=== PATIENT | female | born 1995 | race Caucasian/White ===

== ENCOUNTER 2017-01-08 13:48 | Emergency (ER) | payer BC, OTHER ==
[2017-01-08 13:57] VITALS: O2SAT 98
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
[2017-01-08 14:24] VITALS: BP 132/84; PULSE 86
== END 2017-01-08 14:23 | disposition home or self-care (01) ==
LOC: ED 13:48
DX: T23.109A Burn of first degree of unspecified hand, unspecified site, initial encounter (principal); T22.111A Burn of first degree of right forearm, initial encounter; X10.2XXA Contact with fats and cooking oils, initial encounter; Y93.G3 Activity, cooking and baking; Y92.511 Restaurant or cafe as the place of occurrence of the external cause; Y99.0 Civilian activity done for income or pay
CPT/HCPCS: 99281; 99283

== ENCOUNTER 2017-01-14 15:16 | Emergency (ER) | payer MEDICAID, OTHER ==
[2017-01-14] MEDS ORDERED: Sodium Chloride 0.9% 1000 ML 1,000 ML IV STA (15:59)
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
[2017-01-14] MEDS ORDERED: Sodium Chloride 0.9% 1000 ML 1,000 ML ONE (16:08)
[2017-01-14 16:34] LABS: BASOPHIL % 0.2 % (0.0-0.4); Granulocytes % 67.7 % (36.0-66.0); Lymphocytes % 23.9 % (24.0-44.0); Mean Cell Volume 85.7 fl (78-100); Mean Corpuscular Hemoglobin 28.7 pg (26-32); Monocytes % 7.2 % (0.0-12.0); Platelet Count 344 K/mm3 (150-450); Red Blood Count 4.49 M/mm3 (4.1-5.4); Red Cell Distribution Width 13.8 % (11.5-14.0); White Blood Count 11.7 K/mm3 (4.0-10.5)
[2017-01-14 16:37] LABS: COMPLETE URINE MICROSCOPIC? YES; Collection Type VOID; Ph 5.5 (5-6)
[2017-01-14 16:43] LABS: ADD URINE CULTURE? YES (NO); Bacteria MANY /HPF (NEGATIVE); Epithelial Cells PACKED /HPF (FEW); Mucus SLIGHT /HPF (NEGATIVE)
[2017-01-14 17:15] LABS: ALBUMIN 3.2 g/dL (3.4-5.0); ALKALINE PHOSPHATASE 104 U/L (46-116); ANION GAP 15.6 MEQ/L (5-15); BLOOD UREA NITROGEN 9 mg/dL (9-20); CHLORIDE 104 mEq/L (98-107); Carbon Dioxide 20.2 mEq/L (21-32); Glucose 85 MG/DL (70-110); HCG, Quantitative (Inhouse) 175952 IU/L (0-6); Potassium 3.8 mEq/L (3.5-5.1); SGOT/AST 16 U/L (15-37); SGPT/ALT 19 U/L (12-78); SODIUM 136 mEq/L (136-145); Total Protein 7.1 gm/dL (6.4-8.2)
[2017-01-14 18:08] VITALS: BP 119/66; PULSE 68
[2017-01-14 18:36] VITALS: O2SAT 98
--- NOTE | 2017-01-14 21:55 | XRAY ---
Indication: Pain. Two-dimensional transvaginal early OB ultrasound was performed. Comparison: None for this . There is a single intrauterine gestational sac with presence of a single pole. The mean crown-rump length measures 3.16 cm corresponding to 10 weeks 0 days. heart rate 171 bpm. No abnormal subchorionic fluid collection. Left and right ovaries sonographically unremarkable. No suspicious adnexal mass or free fluid. Impression: Single viable intrauterine measuring 10 weeks 0 days. Expected date of confinement is August 12, 2017. Nothing acute. Comment: Preliminary report was given.
== END 2017-01-14 18:41 | disposition home or self-care (01) ==
LOC: ED 15:16
DX: O26.891 Other specified pregnancy related conditions, first trimester (principal); R10.32 Left lower quadrant pain; R10.31 Right lower quadrant pain
CPT/HCPCS: 36000; 36415; 76801; 80053; 81000; 84702; 85025; 87086; 96360; 99284

== ENCOUNTER 2017-02-12 01:26 | Emergency (ER) | payer BC, MEDICAID ==
[2017-02-12 03:44] VITALS: O2SAT 97
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
[2017-02-12 04:17] VITALS: BP 124/78; PULSE 72
== END 2017-02-12 04:15 | disposition home or self-care (01) ==
LOC: ED 01:26
DX: O26.891 Other specified pregnancy related conditions, first trimester (principal); Z3A.14 14 weeks gestation of pregnancy; R10.10 Upper abdominal pain, unspecified; Y04.0XXA Assault by unarmed brawl or fight, initial encounter; R11.10 Vomiting, unspecified
CPT/HCPCS: 99282; 99283

== ENCOUNTER 2017-08-17 16:27 | Inpatient (IN) | payer BC, MEDICAID ==
[2017-08-17] MEDS ORDERED: Cervidil 10 MG VAG SCH (22:00)
[2017-08-17] MEDS ORDERED: BRETHINE 1 MG/ML SQ PRN (22:00)
[2017-08-17 22:54] LABS: Amphetamine,Urine NEG. (NEGATIVE); Barbiturate,Urine NEG. (NEGATIVE); Benzodiazepine,Urine NEG. (NEGATIVE); Cocaine,Urine NEG. (NEGATIVE); Methadone,Urine NEG. (NEGATIVE); Opiate,Urine NEG. (NEGATIVE); PCP,Urine NEG. (NEGATIVE); THC,Urine NEG. (NEGATIVE)
[2017-08-17 22:55] LABS: BASOPHIL % 0.2 % (0.0-0.4); Basophil (Absolute #) 0.02 (0-0.4); Eosinophil (Absolute #) 0.13 (0-0.5); Granulocyte Absolute (ANC) 8.45 (1.4-6.9); Granulocytes % 63.3 % (36.0-66.0); Hemoglobin 11.6 gm/dl (12.0-16.0); Lymphocyte (Absolute #) 3.59 (1.0-4.6); Lymphocytes % 26.9 % (24.0-44.0); Mean Cell Volume 86.1 fl (78-100); Mean Corpuscular Hgb Concent. 32.2 g/dl (32-36); Mean Platelet Volume 10.7 fl (6-9.5); Monocyte (Absolute #) 1.14 (0.0-1.3); Monocytes % 8.6 % (0.0-12.0); Platelet Count 361 K/mm3 (150-450); Red Blood Count 4.18 M/mm3 (4.1-5.4); Red Cell Distribution Width 13.9 % (11.5-14.0); White Blood Count 13.3 K/mm3 (4.0-10.5)
[2017-08-17 23:04] LABS: Mean Corpuscular Hemoglobin 27.7 pg (26-32)
[2017-08-18] MEDS ORDERED: PITOCIN 30 UNITS/ LR 500 ML 500 ML IV SCH ×2 (06:00)
[2017-08-18] MEDS ORDERED: TYLENOL EXTRA STRENGTH 500 MG PO PRN ×2 (06:00→18:37)
[2017-08-18] MEDS ORDERED: XYLOCAINE 1% HCL 20 ML MDV IJ PRN (06:00)
[2017-08-18] MEDS: Lactated Ringers 1,000 ML IV SCH ×2 (06:01→10:34)
[2017-08-18] MEDS ORDERED: Ephedrine Sulfate 50 MG/ML IV PRN (11:55)
[2017-08-18] MEDS ORDERED: Lactated Ringers 1,000 ML IV ONE (11:55)
[2017-08-18] MEDS ORDERED: OB EPIDURAL NAROPIN/SUFENTANIL IN NACL EPIDURAL PRN (11:55)
[2017-08-18 12:06] VITALS: O2SAT 98
[2017-08-18] MEDS ORDERED: Restoril 15 MG PO PRN (18:37)
[2017-08-18] MEDS ORDERED: TUCKS TP PRN (18:37)
[2017-08-18] MEDS ORDERED: Dermoplast Spray TP PRN (18:37)
[2017-08-18] MEDS ORDERED: Anucort-HC SUPPOSITORY PR PRN (18:37)
[2017-08-18] MEDS ORDERED: LANSINOH 40 GM TOP PRN (18:37)
[2017-08-18] MEDS ORDERED: CORTISONE 1% CREAM TP PRN (18:37)
[2017-08-18] MEDS ORDERED: Mylicon 80MG PO PRN (18:37)
[2017-08-18] MEDS ORDERED: Dulcolax 10 MG SUPP PR PRN (18:37)
[2017-08-18] MEDS ORDERED: Adacel Vial IM ONE (18:37)
[2017-08-18] MEDS ORDERED: Ambien 10 MG PO PRN (18:37)
[2017-08-18] MEDS: Colace 100 MG PO SCH (22:03)
[2017-08-19] MEDS: NORCO 5/325 MG PO PRN ×2 (06:09→22:44)
[2017-08-19] MEDS: MOTRIN 400 MG PO PRN ×2 (06:09→17:23)
[2017-08-19 09:28] LABS: BASOPHIL % 0.1 % (0.0-0.4); Basophil (Absolute #) 0.02 (0-0.4); Eosinophil % 0.4 % (0.00-5.0); Eosinophil (Absolute #) 0.06 (0-0.5); Granulocyte Absolute (ANC) 11.51 (1.4-6.9); Granulocytes % 75.7 % (36.0-66.0); Hematocrit 34.1 % (35-47); Hemoglobin 10.7 gm/dl (12.0-16.0); Lymphocyte (Absolute #) 2.29 (1.0-4.6); Lymphocytes % 15.1 % (24.0-44.0); Mean Cell Volume 88.1 fl (78-100); Mean Corpuscular Hemoglobin 27.6 pg (26-32); Mean Corpuscular Hgb Concent. 31.4 g/dl (32-36); Mean Platelet Volume 11.1 fl (6-9.5); Monocyte (Absolute #) 1.33 (0.0-1.3); Monocytes % 8.7 % (0.0-12.0); Platelet Count 315 K/mm3 (150-450); Red Blood Count 3.87 M/mm3 (4.1-5.4); Red Cell Distribution Width 13.9 % (11.5-14.0); White Blood Count 15.2 K/mm3 (4.0-10.5)
[2017-08-19] MEDS: Colace 100 MG PO SCH ×2 (10:04→22:40)
[2017-08-19] MEDS: FERREX 150 PO SCH (10:04)
[2017-08-20] MEDS: Colace 100 MG PO SCH (10:05)
[2017-08-20] MEDS: FERREX 150 PO SCH (10:05)
[2017-08-20 15:48] VITALS: BP 143/66; PULSE 103
[2017-08-20] MEDS ORDERED: Sensorcaine 0.25% 10 ML IJ ONE (18:59)
== END 2017-08-20 19:00 | disposition home or self-care (01) | DRG 775 ==
LOC: OB 21:03 → EEVIPCON 21:03 → OBSVTOIN 08-18 07:50
PROVIDERS: ADMIT Family Medicine; ATTEND Family Medicine
PROC: 10E0XZZ Delivery of Products of Conception, External Approach (ICD-10-PCS; principal; 2017-08-18)
DX: O70.1 Second degree perineal laceration during delivery (principal); Z3A.40 40 weeks gestation of pregnancy; Z37.0 Single live birth
CPT/HCPCS: 01967; 36415; 80307; 85025; 87086; 90471; 90715; G0378; J2590; A9270-GY

== ENCOUNTER 2020-12-14 09:42 | Emergency (ER) | payer BC, MEDICAID ==
--- NOTE | 2020-12-14 10:08 | ERPHSYRPT ---
- History of Present Illness Time Seen by Provider: 12/14/20 10:03 Source: patient Exam Limitations: no limitations Patient Subjective Stated Complaint: abd pain and cramping x 1 week Triage Nursing Assessment: pt to ED c/o lower abd pain and cramping x 1 week. rates 4/10 pain, intermittently sharp at times. pt is 15 weeks 2 days . denies vaginal bleeding at this time. FHT assessed on arrival, 159 BPM and regular in sound. Physician History: Patient is a 25-year-old at 15 weeks gestation with an EDC of 06/06/2021 who presents with 1 week history of lower abdominal crampy pain some nausea and vomiting which seems to resolve after the morning. She sees her physician tomorrow she has had no fever chills or sweats she has had no bleeding. He is a 2 para 1 Timing/Duration: week(s) (1) Activites at Onset: none Quality: cramping Onset Location: pelvic pain Pain Radiation: none Severity of Pain-Max: moderate Severity of Pain-Current: moderate Prior abdominal problems: none Sexual intercourse history: non-contributory Modifying Factors: Improves With: nothing Associated Symptoms: nausea, vomiting Allergies/Adverse Reactions: No Known Drug Allergies Allergy (Verified 08/17/17 23:15) Hx Tetanus, Diphtheria Vaccination/Date Given: Yes Hx Influenza Vaccination/Date Given: Yes Hx Pneumococcal Vaccination/Date Given: No Travel Risk - International Travel Have you traveled outside of the country in past 3 weeks: No - Coronavirus Screening Are you exhibiting any of the following symptoms?: No Close contact with a COVID-19 positive Pt in past 14-21 Days: No - Vaccine Status Have you recieved a Covid-19 vaccination: No - Review of Systems Constitutional: No Fever, No Chills Eyes: No Symptoms Ears, Nose, & Throat: No Symptoms Respiratory: No Cough, No Dyspnea Cardiac: No Chest Pain, No Edema, No Syncope Abdominal/Gastrointestinal: No Abdominal Pain, No Nausea, No Vomiting, No Diarrhea Genitourinary Symptoms: , No Dysuria Musculoskeletal: No Back Pain, No Neck Pain Skin: No Rash Neurological: No Dizziness, No Focal Weakness, No Sensory Changes Psychological: No Symptoms Endocrine: No Symptoms All Other Systems: Reviewed and Negative - Past Medical History Pertinent Past Medical History: Yes Neurological History: No Pertinent History ENT History: No Pertinent History Cardiac History: No Pertinent History Respiratory History: No Pertinent History Endocrine Medical History: No Pertinent History Musculoskeletal History: Fractures GI Medical History: No Pertinent History History: No Pertinent History Psycho-Social History: Anxiety, Attention Deficit Disorder, Depression Female Reproductive Disorders: No Pertinent History Other Medical History: ANGER ISSUES. ALCOHOL EFFECTS AT - Past Surgical History Past Surgical History: Yes Neuro Surgical History: No Pertinent History Cardiac: No Pertinent History Respiratory: No Pertinent History Gastrointestinal: No Pertinent History Genitourinary: No Pertinent History Musculoskeletal: Orthopedic Surgery Female Surgical History: No Pertinent History Other Surgical History: left leg repair - Social History Smoking Status: Current every day smoker How long have you smoked: 4 years Exposure to second hand smoke: Yes Drug Use: none Patient Lives Alone: No - Female History Hx Now: Yes Gestational Age: 15 weeks 2 - Nursing Vital Signs Nursing Vital Signs: Initial Vital Signs Temperature 97.0 F 12/14/20 09:52 Pulse Rate 91 H 12/14/20 09:52 Respiratory Rate 20 12/14/20 09:52 Blood Pressure 127/79 12/14/20 09:52 O2 Sat by Pulse Oximetry 98 12/14/20 09:52 Pain Scale Pain Intensity 4 - Physical Exam General Appearance: no apparent distress, alert Eye Exam: PERRL/EOMI, eyes nml inspection Ears, Nose, Throat Exam: normal ENT inspection, TMs normal, pharynx normal, moist mucous membranes Neck Exam: normal inspection, non-tender, supple, full range of motion Respiratory Exam: normal breath sounds, lungs clear, No respiratory distress Cardiovascular Exam: regular rate/rhythm, normal heart sounds, normal peripheral pulses Gastrointestinal/Abdomen Exam: soft, No tenderness, No mass Pelvic Exam: other (Digital exam shows the cervix to be long and closed) Back Exam: normal inspection, normal range of motion, No CVA tenderness, No vertebral tenderness Extremity Exam: normal inspection, normal range of motion, pelvis stable Neurologic Exam: alert, oriented x 3, cooperative, winder helper II-XII nml as tested, normal mood/affect, sensation nml, No motor deficits Skin Exam: normal color, warm, dry Lymphatic Exam: No adenopathy SpO2: 98 - Course Nursing assessment & vital signs reviewed: Yes Ordered Tests: Active Orders 24 hr Category Date Time Status CBC W DIFF Stat Lab 12/14/20 10:20 Completed CMP Stat Lab 12/14/20 10:20 Completed CULTURE,URINE Stat Lab 12/14/20 10:10 Received UA W/RFX UR CULTURE Stat Lab 12/14/20 10:10 Completed Lab/Rad Data: Laboratory Result Diagrams 12/14/20 10:20 12/14/20 10:20 Laboratory Results 12/14/20 12/14/20 12/14/20 Range/Units 10:20 10:20 10:10 WBC 10.8 H (4.0-10.5) K/mm3 RBC 4.24 (4.1-5.4) M/mm3 Hgb 12.6 (12.0-16.0) gm/dl Hct 37.6 (35-47) % MCV 88.7 (78-100) fl MCH 29.7 (26-32) pg MCHC 33.5 (32-36) g/dl RDW 13.7 (11.5-14.0) % Plt Count 267 (150-450) K/mm3 MPV 10.5 (7.5-11.0) fl Gran % 63.9 (36.0-66.0) % Eos # (Auto) 0.20 (0-0.5) Absolute Lymphs (auto) 3.01 (1.0-4.6) Absolute Monos (auto) 0.65 (0.0-1.3) Lymphocytes % 27.9 (24.0-44.0) % Monocytes % 6.0 (0.0-12.0) % Eosinophils % 1.9 (0.00-5.0) % Basophils % 0.3 (0.0-0.4) % Absolute Granulocytes 6.91 H (1.4-6.9) Basophils # 0.03 (0-0.4) Sodium 135 L (137-145) mmol/L Potassium 3.6 (3.5-5.1) mmol/L Chloride 108 H (98-107) mmol/L Carbon Dioxide 22 (22-30) mmol/L Anion Gap 8.7 (5-15) MEQ/L BUN 6 L (7-17) mg/dL Creatinine 0.41 L (0.52-1.04) mg/dL Estimated GFR > 60.0 ML/MIN Glucose 86 (74-106) mg/dL Calcium 9.1 (8.4-10.2) mg/dL Total Bilirubin 0.40 (0.2-1.3) mg/dL AST 15 (14-36) U/L ALT 12 (0-35) U/L Alkaline Phosphatase 88 (38-126) U/L Serum Total Protein 6.3 (6.3-8.2) g/dL Albumin 3.6 (3.5-5.0) g/dL Urine Color YELLOW (YELLOW) Urine Appearance CLOUDY (CLEAR) Urine pH 7.0 (5-6) Ur Specific [place] 1.014 (1.005-1.025) Urine Protein NEGATIVE (Negative) Urine Ketones NEGATIVE (NEGATIVE) Urine Blood NEGATIVE (0-5) Mike/ul Urine Nitrite NEGATIVE (NEGATIVE) Urine Bilirubin NEGATIVE (NEGATIVE) Urine Urobilinogen 2 (0-1) mg/dL Ur Leukocyte Esterase MODERATE (NEGATIVE) Urine WBC (Auto) 11-15 (0-5) /HPF Urine RBC (Auto) 0-2 (0-2) /HPF U Epithel Cells (Auto) MANY (FEW) /HPF Urine Bacteria (Auto) RARE (NEGATIVE) /HPF Urine Mucus (Auto) SLIGHT (NEGATIVE) /HPF Urine Culture Reflexed YES (NO) Urine Glucose NEGATIVE (NEGATIVE) mg/dL - Progress Progress: unchanged Air Movement: good Blood Culture(s) Obtained: No Antibiotics given: Yes - Departure Departure Disposition: Home Clinical Impression: Urinary tract infection affecting care of mother in first trimester, antepartum Condition: Stable Critical Care Time: No Referrals: BEATRICE ROLDAN [Primary Care Provider] - Instructions: Urinary Tract Infections in Prescriptions: Cephalexin Mh 500 mg [Keflex 500 mg] 500 mg PO TID #21 capsule
[2020-12-14 10:25] LABS: Appearance CLOUDY (CLEAR); Bacteria RARE /HPF (NEGATIVE); Bilirubin NEGATIVE (NEGATIVE); Blood NEGATIVE Ery/ul (0-5); Epithelial Cells MANY /HPF (FEW); Glucose NEGATIVE (NEGATIVE); Ketones NEGATIVE (NEGATIVE); Leukocyte Esterase MODERATE (NEGATIVE); Mucus SLIGHT /HPF (NEGATIVE); Nitrite NEGATIVE (NEGATIVE); Protein,Urine Dip NEGATIVE (Negative); RBC 0-2 /HPF (0-2); Specific Gravity 1.014 (1.005-1.025); Urobilinogen 2 mg/dL (0-1)
[2020-12-14 10:31] LABS: Absolute Neutrophil Ct (ANC) 6.91 (1.4-6.9); BASOPHIL % 0.3 % (0.0-0.4); Basophil (Absolute #) 0.03 (0-0.4); Eosinophil % 1.9 % (0.00-5.0); Hematocrit 37.6 % (35-47); Hemoglobin 12.6 gm/dl (12.0-16.0); Lymphocyte (Absolute #) 3.01 (1.0-4.6); Lymphocytes % 27.9 % (24.0-44.0); Mean Cell Volume 88.7 fl (78-100); Mean Corpuscular Hemoglobin 29.7 pg (26-32); Mean Corpuscular Hgb Concent. 33.5 g/dl (32-36); Mean Platelet Volume 10.5 fl (7.5-11.0); Monocyte (Absolute #) 0.65 (0.0-1.3); Neutrophil % 63.9 % (36.0-66.0); Platelet Count 267 K/mm3 (150-450); Red Blood Count 4.24 M/mm3 (4.1-5.4); Red Cell Distribution Width 13.7 % (11.5-14.0); White Blood Count 10.8 K/mm3 (4.0-10.5)
[2020-12-14 10:38] LABS: ALBUMIN 3.6 g/dL (3.5-5.0); ALKALINE PHOSPHATASE 88 U/L (38-126); ANION GAP 8.7 MEQ/L (5-15); BLOOD UREA NITROGEN 6 mg/dL (7-17); CHLORIDE 108 mmol/L (98-107); Calcium 9.1 mg/dL (8.4-10.2); Carbon Dioxide 22 mmol/L (22-30); Creatinine 1 0.41 mg/dL (0.52-1.04); EST GLOMERULAR FILTRATION RATE > 60.0 ML/MIN; Glucose 86 mg/dL (74-106); Potassium 3.6 mmol/L (3.5-5.1); SGOT/AST 15 U/L (14-36); SGPT/ALT 12 U/L (0-35); SODIUM 135 mmol/L (137-145); Total Protein 6.3 g/dL (6.3-8.2)
[2020-12-14 11:03] VITALS: BP 125/75; PULSE 83; O2SAT 97
== END 2020-12-14 11:11 | disposition home or self-care (01) ==
LOC: ED 09:42
DX: O23.41 Unspecified infection of urinary tract in pregnancy, first trimester (principal); Z3A.15 15 weeks gestation of pregnancy
CPT/HCPCS: 36415; 80053; 81001; 85025; 87086; 99284

== ENCOUNTER 2021-03-25 11:09 | Emergency (ER) | payer OTHER ==
--- NOTE | 2021-03-25 11:12 | ERPHSYRPT ---
- History of Present Illness Time Seen by Provider: 03/25/21 11:11 Source: patient Exam Limitations: no limitations Physician History: This is a 25-year-old overweight white female who is 7 months and continues to smoke cigarettes and presents with coughing episodes that began last evening. She has been coughing up yellowish phlegm. She has no chest pain. She is mildly short of breath with the coughing spells. She has no abdominal pain. She has no nausea vomiting or diarrhea. He has no pain in her calves. Patient's room air oxygenation on arrival is 97 to 98%. Timing/Duration: yesterday Activities at Onset: activity Severity of Dyspnea-Max: mild Severity of Dyspnea-Current: mild Possible Cause: no prior episodes Modifying Factors: Improves With: coughing, other (Cigarette smoke worsens) Associated Symptoms: cough, productive cough (Yellowish phlegm) Allergies/Adverse Reactions: No Known Drug Allergies Allergy (Verified 08/17/17 23:15) Hx Tetanus, Diphtheria Vaccination/Date Given: Yes Hx Influenza Vaccination/Date Given: Yes Hx Pneumococcal Vaccination/Date Given: No Travel Risk - International Travel Have you traveled outside of the country in past 3 weeks: No - Coronavirus Screening Are you exhibiting any of the following symptoms?: No Close contact with a COVID-19 positive Pt in past 14-21 Days: No - Vaccine Status Have you recieved a Covid-19 vaccination: No - Review of Systems Constitutional: No Symptoms Eyes: No Symptoms Ears, Nose, & Throat: No Symptoms Respiratory: Cough, Dyspnea Cardiac: No Symptoms (Mild) Abdominal/Gastrointestinal: No Symptoms Genitourinary Symptoms: No Symptoms Musculoskeletal: No Symptoms Skin: No Symptoms Neurological: No Symptoms Psychological: No Symptoms Endocrine: No Symptoms Hematologic/Lymphatic: No Symptoms Immunological/Allergic: No Symptoms All Other Systems: Reviewed and Negative - Past Medical History Pertinent Past Medical History: Yes Neurological History: No Pertinent History ENT History: No Pertinent History Cardiac History: No Pertinent History Respiratory History: No Pertinent History Endocrine Medical History: No Pertinent History Musculoskeletal History: Fractures GI Medical History: No Pertinent History History: No Pertinent History Psycho-Social History: Anxiety, Attention Deficit Disorder, Depression Female Reproductive Disorders: No Pertinent History Other Medical History: ANGER ISSUES. ALCOHOL EFFECTS AT - Past Surgical History Past Surgical History: Yes Neuro Surgical History: No Pertinent History Cardiac: No Pertinent History Respiratory: No Pertinent History Gastrointestinal: No Pertinent History Genitourinary: No Pertinent History Musculoskeletal: Orthopedic Surgery Female Surgical History: No Pertinent History Other Surgical History: left leg repair - Social History Smoking Status: Current every day smoker How long have you smoked: 4 years Exposure to second hand smoke: Yes Drug Use: none Patient Lives Alone: No - Nursing Vital Signs Nursing Vital Signs: Initial Vital Signs Temperature 99.2 F 03/25/21 11:14 Pulse Rate 112 H 03/25/21 11:14 Respiratory Rate 22 03/25/21 11:14 Blood Pressure 132/75 03/25/21 11:14 O2 Sat by Pulse Oximetry 97 03/25/21 11:14 Pain Scale Pain Intensity 4 - Physical Exam General Appearance: no apparent distress, alert, obese Eye Exam: PERRL/EOMI, eyes nml inspection Ears, Nose, Throat Exam: hearing grossly normal, normal ENT inspection Neck Exam: normal inspection, non-tender, supple, full range of motion Respiratory Exam: wheezing (Mild left upper lobe expiratory wheezing), No chest tenderness, No respiratory distress, No stridor Cardiovascular/Chest Exam: normal heart sounds, regular rate/rhythm, normal peripheral pulses Abdominal/Gastrointestinal Exam: soft Rectal Exam: not done Extremity Exam: non-tender, normal range of motion, normal inspection, normal capillary refill, no calf tenderness, no pedal edema, pelvis stable Neurologic Exam: alert, oriented x 3, cooperative, adjunct faculty II-XII nml as tested, normal mood/affect, nml cerebellar function, nml station & gait, sensation nml Skin Exam: normal color, warm, dry Lymphatic Exam: No adenopathy SpO2 Interpretation: normal O2 Delivery: Room Air - Course Nursing assessment & vital signs reviewed: Yes Ordered Tests: Active Orders 24 hr Category Date Time Status INFLUENZA A+B EMILIANO Stat Lab 03/25/21 11:25 Ordered - Progress Progress: unchanged Air Movement: good Progress Note: 03/25/21 11:55 Patient is to be discharged to home and we will follow up with the test results and contact the patient. I did send a prescription of Keflex to the patient's pharmacy of choice. If the Covid test is positive, she will not fill the pre scription for Keflex. If the strep test is positive or all tests are negative, the patient will fill the prescription of Keflex and be treated for bronchitis. Blood Culture(s) Obtained: No Antibiotics given: No Counseled pt/family regarding: diagnosis, need for follow-up, rad results - Departure Departure Disposition: Home Clinical Impression: Bronchitis Condition: Stable Critical Care Time: No Referrals: BEATRICE ROLDAN [Primary Care Provider] - Additional Instructions: Stop smoking cigarettes. Fill the Keflex prescription as discussed if you fulf ill the criteria as discussed. Follow-up with your instrument calibrator today to make an outpatient appointment for reevaluation. If your COVID-19 test is positive, you need to quarantine yourself as discussed. Prescriptions: Cephalexin Mh 500 mg [Keflex 500 mg] 500 mg PO TID #21 capsule
[2021-03-25 11:19] VITALS: BP 132/75
[2021-03-25 12:11] LABS: INFLUENZA A NEGATIVE (NEGATIVE); INFLUENZA B NEGATIVE (NEGATIVE)
[2021-03-25 12:15] VITALS: PULSE 105; O2SAT 98
== END 2021-03-25 12:44 | disposition home or self-care (01) ==
LOC: ED 11:09
DX: J40 Bronchitis, not specified as acute or chronic (principal)
CPT/HCPCS: 87400; 87651; 99283; U0003

== ENCOUNTER 2021-04-06 11:12 | Observation (INO) | payer OTHER ==
--- NOTE | 2021-04-06 12:39 | XRAY ---
Exam: OB ultrasound Limited from 04/06/2021. Comparison: OB ultrasound limited from 03/23/2021. Indication: Pelvic pain; evaluate cervical canal length. Transvaginal sonogram images of the maternal cervical canal average 6.04 cm in length. The maternal cervical canal appears closed. heart rate measured 149 bpm. Impression: 1. Maternal cervical canal length exceeds 6 cm and appears closed.
--- NOTE | 2021-04-06 12:49 | XRAY ---
Exam: OB biophysical profile with nonstress from 04/06/2021. Comparison: None. Indication: Pelvic pain. Findings: 4 quadrant amniotic fluid volume measures 17.66 cm with the greatest AP distance being 7.09 cm. The heart rate measured 134 bpm. On the OB biophysical profile, there was a scoring of 2 points for gross body movements, tone, and qualitative amniotic fluid volume. score was 0 for breathing movements (i.e. less than 30 seconds of sustained breathing movements in 30 minutes of observation). Impression: 1. OB biophysical profile was 6 points out of a maximum of 8 points. See above. 2. Amniotic fluid index measured 17.66 cm. 3. heart rate measured 134 bpm.
[2021-04-06 13:02] VITALS: BP 117/74; PULSE 84; O2SAT 96
== END 2021-04-06 15:30 | disposition home or self-care (01) ==
LOC: OB 11:18
PROVIDERS: ADMIT Family Medicine; ATTEND Family Medicine
DX: O26.893 Other specified pregnancy related conditions, third trimester (principal); Z3A.31 31 weeks gestation of pregnancy; R10.2 Pelvic and perineal pain
CPT/HCPCS: 59025; 76815; 76818; G0378

== ENCOUNTER 2021-05-06 13:00 | Observation (INO) | payer BC, OTHER ==
--- NOTE | 2021-05-06 14:51 | XRAY ---
Indication: Maternal hypertension. Ultrasound biophysical profile exam performed. Comparison: April 06, 2021. Total biophysical profile score was 6 out of 8. Again single viable intrauterine with heart rate 147 BPM. Four-quadrant RAFAEL is 15.7 cm, largest pocket 5.7 cm. 2 points given for breathing, movements, tone, and qualitative amniotic fluid volume. Impression: Total biophysical profile score is now 8 out of 8.
[2021-05-06 15:05] VITALS: BP 125/65; PULSE 118
[2021-05-06 15:06] LABS: Hematocrit 33.8 % (35-47); Hemoglobin 10.9 gm/dl (12.0-16.0); Mean Cell Volume 91.8 fl (78-100); Mean Corpuscular Hemoglobin 29.6 pg (26-32); Mean Corpuscular Hgb Concent. 32.2 g/dl (32-36); Mean Platelet Volume 10.4 fl (7.5-11.0); Platelet Count 268 K/mm3 (150-450); Red Blood Count 3.68 M/mm3 (4.1-5.4); Red Cell Distribution Width 14.3 % (11.5-14.0); White Blood Count 11.8 K/mm3 (4.0-10.5)
[2021-05-06 15:15] LABS: ALBUMIN 3.4 g/dL (3.5-5.0); ALKALINE PHOSPHATASE 140 U/L (38-126); ANION GAP 13.1 MEQ/L (5-15); BLOOD UREA NITROGEN 6 mg/dL (7-17); CHLORIDE 107 mmol/L (98-107); Carbon Dioxide 19 mmol/L (22-30); Creatinine 1 0.41 mg/dL (0.52-1.04); EST GLOMERULAR FILTRATION RATE > 60.0 ML/MIN; Glucose 97 mg/dL (74-106); Potassium 3.6 mmol/L (3.5-5.1); SGOT/AST 18 U/L (14-36); SGPT/ALT 16 U/L (0-35); SODIUM 135 mmol/L (137-145); Total Protein 6.3 g/dL (6.3-8.2)
[2021-05-06 15:18] LABS: Appearance CLOUDY (CLEAR); Bacteria RARE /HPF (NEGATIVE); Bilirubin NEGATIVE (NEGATIVE); Blood NEGATIVE Ery/ul (0-5); Epithelial Cells MODERATE /HPF (FEW); Glucose NEGATIVE (NEGATIVE); Ketones TRACE (NEGATIVE); Leukocyte Esterase NEGATIVE (NEGATIVE); Mucus MODERATE /HPF (NEGATIVE); Nitrite NEGATIVE (NEGATIVE); Protein,Urine Dip NEGATIVE (Negative); RBC 0-2 /HPF (0-2); Specific Gravity 1.019 (1.005-1.025); Urobilinogen NEGATIVE mg/dL (0-1); WBC 0-2 /HPF (0-5)
[2021-05-06 15:36] LABS: Creatinine, Urine Random 173.3 mg/dl; TP, Urine Random < 5.0 mg/dl (<12)
[2021-05-06 20:10] LABS: Lymphocytes 26 % (24-44); Microcytosis 1+; Monocyte 4 % (0.0-12.0); Neutrophils 70 % (36.0-66.0); Platelet Estimate NORMAL (NORMAL); Total Cells Counted 100
== END 2021-05-06 16:04 | disposition home or self-care (01) ==
LOC: OB 13:48
PROVIDERS: ADMIT Family Medicine; ATTEND Family Medicine
DX: O16.3 Unspecified maternal hypertension, third trimester (principal); Z3A.36 36 weeks gestation of pregnancy
CPT/HCPCS: 36415; 59025; 76818; 80053; 81001; 82570; 84156; 84550; 85025; G0378

== ENCOUNTER 2021-05-13 08:18 | Observation (INO) | payer OTHER ==
[2021-05-14 17:17] LABS: Absolute Neutrophil Ct (ANC) 7.11 (1.4-6.9); BASOPHIL % 0.3 % (0.0-0.4); Basophil (Absolute #) 0.03 (0-0.4); Eosinophil (Absolute #) 0.11 (0-0.5); Hematocrit 34.4 % (35-47); Hemoglobin 11.1 gm/dl (12.0-16.0); Lymphocyte (Absolute #) 3.03 (1.0-4.6); Lymphocytes % 27.3 % (24.0-44.0); Mean Cell Volume 92.7 fl (78-100); Mean Corpuscular Hemoglobin 29.9 pg (26-32); Mean Corpuscular Hgb Concent. 32.3 g/dl (32-36); Monocytes % 7.2 % (0.0-12.0); Neutrophil % 64.2 % (36.0-66.0); Platelet Count 291 K/mm3 (150-450); Red Blood Count 3.71 M/mm3 (4.1-5.4); Red Cell Distribution Width 14.5 % (11.5-14.0); White Blood Count 11.1 K/mm3 (4.0-10.5)
[2021-05-14 17:29] LABS: ALBUMIN 3.5 g/dL (3.5-5.0); ALKALINE PHOSPHATASE 155 U/L (38-126); ANION GAP 12.4 MEQ/L (5-15); BLOOD UREA NITROGEN 11 mg/dL (7-17); CHLORIDE 107 mmol/L (98-107); Calcium 9.3 mg/dL (8.4-10.2); Carbon Dioxide 19 mmol/L (22-30); EST GLOMERULAR FILTRATION RATE > 60.0 ML/MIN; Glucose 98 mg/dL (74-106); SGOT/AST 19 U/L (14-36); SGPT/ALT 20 U/L (0-35); SODIUM 134 mmol/L (137-145); Total Protein 6.5 g/dL (6.3-8.2)
[2021-05-14 18:08] LABS: Creatinine, Urine Random 136.5 mg/dl; TP, Urine Random < 5.0 mg/dl (<12)
[2021-05-14 18:18] LABS: Amphetamine,Urine NEGATIVE (NEGATIVE); Barbiturate,Urine NEGATIVE (NEGATIVE); Benzodiazepine,Urine NEGATIVE (NEGATIVE); Cocaine,Urine NEGATIVE (NEGATIVE); Methadone,Urine NEGATIVE (NEGATIVE); Opiate,Urine NEGATIVE (NEGATIVE); PCP,Urine NEGATIVE (NEGATIVE); THC,Urine NEGATIVE (NEGATIVE)
--- NOTE | 2021-05-14 22:26 | XRAY ---
Exam: Ultrasound biophysical profile with nonstress from 05/14/2021. Comparison: Ultrasound biophysical profile with nonstress from 05/06/2021. Indication: well-being. Findings: The biophysical profile score was 8 points out of a maximum of 8 points with 2 points given for breathing movements, gross body movements, tone, and qualitative amniotic fluid volume. The heart rate measured 149 bpm. Impression: 1. OB biophysical profile scored 8 points out of a maximum of 8 points representing no change from 05/06/2021.
== END 2021-05-14 18:41 | disposition home or self-care (01) ==
LOC: OB 05-14 16:16
PROVIDERS: ADMIT Family Medicine; ATTEND Family Medicine
DX: O16.3 Unspecified maternal hypertension, third trimester (principal); Z3A.36 36 weeks gestation of pregnancy
CPT/HCPCS: 36415; 59025; 76818; 80053; 80307; 82570; 84156; 84550; 85025; G0378

== ENCOUNTER 2021-06-02 05:03 | Inpatient (IN) | payer OTHER ==
[2021-06-02] MEDS ORDERED: Zofran 4 MG/2 ML VIAL IV PRN (21:00)
[2021-06-02 22:49] LABS: Hematocrit 35.4 % (35-47); Hemoglobin 11.3 gm/dl (12.0-16.0); Mean Cell Volume 91.2 fl (78-100); Mean Corpuscular Hemoglobin 29.1 pg (26-32); Mean Corpuscular Hgb Concent. 31.9 g/dl (32-36); Platelet Count 297 K/mm3 (150-450); Red Blood Count 3.88 M/mm3 (4.1-5.4); Red Cell Distribution Width 14.2 % (11.5-14.0); White Blood Count 13.2 K/mm3 (4.0-10.5)
[2021-06-02] MEDS ORDERED: BRETHINE 1 MG/ML SQ PRN (23:00)
[2021-06-02] MEDS ORDERED: PITOCIN 30 UNITS/ LR 500 ML 30 UNITS/500 ML IV.SOLN. IV SCH (23:00)
[2021-06-02 23:06] LABS: Amphetamine,Urine NEGATIVE (NEGATIVE); Barbiturate,Urine NEGATIVE (NEGATIVE); Benzodiazepine,Urine NEGATIVE (NEGATIVE); Cocaine,Urine NEGATIVE (NEGATIVE); Methadone,Urine NEGATIVE (NEGATIVE); Opiate,Urine NEGATIVE (NEGATIVE); PCP,Urine NEGATIVE (NEGATIVE); THC,Urine POSITIVE (NEGATIVE)
[2021-06-02] MEDS: Lactated Ringers 1,000 ML IV SCH (23:06)
[2021-06-02 23:58] LABS: Lymphocytes 31 % (24-44); Monocyte 8 % (0.0-12.0); Neutrophils 61 % (36.0-66.0); Platelet Estimate NORMAL (NORMAL); Total Cells Counted 100
[2021-06-03 00:02] LABS: ABO TYPING O; Antibody Screen NEGATIVE (NEGATIVE); RH TYPING POSITIVE
[2021-06-03] MEDS ORDERED: OB EPIDURAL NAROPIN/SUFENTANIL IN NACL EPIDURAL PRN (05:26)
[2021-06-03] MEDS ORDERED: Ephedrine Sulfate 50 MG/ML IV PRN (05:26)
[2021-06-03] MEDS ORDERED: Lactated Ringers 1,000 ML IV ONE (05:26)
[2021-06-03] MEDS: Lactated Ringers 1,000 ML IV SCH ×3 (06:36→15:31)
[2021-06-03] MEDS ORDERED: PITOCIN 30 UNITS/ LR 500 ML 30 UNITS/500 ML IV.SOLN. IV SCH (12:00)
[2021-06-03] MEDS ORDERED: SUBLIMAZE 100 MCG/2 ML ONE (14:09)
[2021-06-03] MEDS ORDERED: XYLOCAINE 2%/Epi 1:200000 20ML VIAL MPF ONE (14:10)
[2021-06-03] MEDS ORDERED: CORTISONE 1% CREAM TP PRN (18:00)
[2021-06-03] MEDS ORDERED: Dulcolax 10 MG SUPP PR PRN (18:00)
[2021-06-03] MEDS ORDERED: LANSINOH 40 GM TOP PRN (18:00)
[2021-06-03] MEDS ORDERED: Dermoplast Spray TP PRN (18:00)
[2021-06-03] MEDS ORDERED: Anucort-HC SUPPOSITORY PR PRN (18:00)
[2021-06-03] MEDS ORDERED: TUCKS TP PRN (18:00)
[2021-06-03] MEDS: MOTRIN 400 MG PO PRN (21:55)
[2021-06-03] MEDS: Colace 100 MG PO SCH (21:55)
[2021-06-04 05:08] LABS: Hematocrit 31.3 % (35-47); Hemoglobin 9.9 gm/dl (12.0-16.0); Mean Cell Volume 93.4 fl (78-100); Mean Corpuscular Hemoglobin 29.6 pg (26-32); Mean Corpuscular Hgb Concent. 31.6 g/dl (32-36); Mean Platelet Volume 10.4 fl (7.5-11.0); Platelet Count 255 K/mm3 (150-450); Red Blood Count 3.35 M/mm3 (4.1-5.4); Red Cell Distribution Width 14.1 % (11.5-14.0); White Blood Count 12.8 K/mm3 (4.0-10.5)
[2021-06-04] MEDS: MOTRIN 400 MG PO PRN ×3 (06:45→21:11)
[2021-06-04 07:51] LABS: ANISOCYTOSIS 1+; Hypochromia 1+; Lymphocytes 23 % (24-44); Microcytosis 1+; Monocyte 5 % (0.0-12.0); Neutrophils 72 % (36.0-66.0); Platelet Estimate NORMAL (NORMAL); Total Cells Counted 100
[2021-06-04] MEDS: Colace 100 MG PO SCH ×2 (10:24→19:55)
--- NOTE | 2021-06-04 11:31 | PCM.NOTE ---
Date and Time: 06/04/21 1130 Subjective Assessment: PPD 1 SP PT RESTING IN BED AND DONG WELL ABLE TO AMBULATE AND TOLERATE DIET VSS AFEBRILE ABD; SOFT UTERUS; FIRM LOCHIA; MILD A/P SP PPD 1 DC HOME TOMORROW FU OFFICE 3 WKS OBJECTIVE DATA Vital Signs: Vital Signs - 24 hr Temp Pulse Resp BP BP Pulse Ox 06/04/21 08:45 98.0 F 93 H 18 138/68 96 06/04/21 04:00 97.9 F 72 18 123/78 99 06/04/21 00:00 98.3 F 90 18 132/65 97 06/03/21 21:00 98.2 F 99 H 18 114/71 99 06/03/21 20:30 98.4 F 96 H 19 129/67 99 06/03/21 19:30 98.6 F 98 H 18 127/65 99 06/03/21 19:20 96 H 129/68 06/03/21 18:35 108 H 18 128/66 06/03/21 18:20 105 H 20 118/59 06/03/21 18:10 105 H 20 128/57 06/03/21 18:00 108 H 18 128/66 06/03/21 17:50 116 H 24 118/56 06/03/21 17:30 104 H 18 133/60 95 06/03/21 17:15 95 H 18 109/72 95 06/03/21 16:58 90 18 110/57 95 06/03/21 16:44 90 18 112/67 95 06/03/21 16:30 98 H 18 115/57 99 06/03/21 16:15 97 H 18 109/60 99 06/03/21 16:00 82 18 103/59 06/03/21 15:45 84 18 96/54 06/03/21 15:30 92 H 18 101/51 06/03/21 15:15 79 18 90/55 06/03/21 15:00 79 93/42 06/03/21 14:00 81 24 117/61 06/03/21 13:45 81 22 145/70 06/03/21 13:30 81 22 145/70 06/03/21 13:15 88 16 127/75 06/03/21 13:00 79 16 120/69 Pain Assessment - Last Documented Pain Intensity [Anterior] 0 Pain Intensity 0 Pain Scale Used 0-10 Pain Scale Intake and Output: Intake & Output 06/01/21 06/02/21 06/03/21 06/04/21 11:59 11:59 11:59 11:59 Intake Total 6700 Output Total 300 300 Balance -300 6400 Weight 132.449 kg Lab Results: Lab Results-Last 24 Hours 06/04/21 Range/Units 04:30 WBC 12.8 H (4.0-10.5) K/mm3 RBC 3.35 L (4.1-5.4) M/mm3 Hgb 9.9 L (12.0-16.0) gm/dl Hct 31.3 L (35-47) % MCV 93.4 (78-100) fl MCH 29.6 (26-32) pg MCHC 31.6 L (32-36) g/dl RDW 14.1 H (11.5-14.0) % Plt Count 255 (150-450) K/mm3 MPV 10.4 (7.5-11.0) fl Segmented Neutrophils 72 H (36.0-66.0) % Lymphocytes (Manual) 23 L (24-44) % Monocytes (Manual) 5 (0.0-12.0) % Hypochromia 1+ Platelet Estimate NORMAL (NORMAL) RBC Morphology ABNORMAL Anisocytosis 1+ Microcytosis 1+ Assessment/Plan (1) Vaginal delivery Current Visit: Yes Status: Acute Code(s): O80 - ENCOUNTER FOR FULL-TERM UNCOMPLICATED DELIVERY
--- NOTE | 2021-06-04 11:40 | PCM.DS ---
Discharge Summary Date of Admission: 06/03/21 07:32 Admitting Physician: SUZIE FELIX DO Consults: Consults on Case 06/03/21 05:27 Notify Anesthesia Provider PRN Primary Care Provider: BEATRICE ROLDAN Allergies Allergies No Known Drug Allergies Allergy (Verified 06/02/21 22:12) Hospital Summary - Hospital Course Hospital Course: PT WAS ADMITTED ON JUN 02 WITH PITOCIN INDUCTION AT 39 5/7 WKS GESTATION AND SUBSEQUENTLY DELIVERED ON JUN 03 VIA WITHOUT COMPLICATION. DURING PERIOD DID WELL AND HAD STALBE HGB AT 9.9. PT AT THIS TIME STABLE FOR DISCHARGE AND WAS ADVISED TO FU IN OFFICE IN 3 WKS. ALL QUESTIONS ANSWERED TO HER SATISFACTION. - Vitals & Intake/Output Vital Signs: Vital Signs Temperature 98.0 F 06/04/21 08:45 Pulse Rate 93 H 06/04/21 08:45 Respiratory Rate 18 06/04/21 08:45 Blood Pressure 138/68 06/04/21 08:45 O2 Sat by Pulse Oximetry 96 06/04/21 08:45 Intake & Output: Intake & Output 06/01/21 06/02/21 06/03/21 06/04/21 11:59 11:59 11:59 11:59 Intake Total 6700 Output Total 300 300 Balance -300 6400 Weight 132.449 kg - Lab Result Diagrams: 06/04/21 04:30 Lab Results-Last 24 Hrs: Lab Results-Last 24 Hours 06/04/21 Range/Units 04:30 WBC 12.8 H (4.0-10.5) K/mm3 RBC 3.35 L (4.1-5.4) M/mm3 Hgb 9.9 L (12.0-16.0) gm/dl Hct 31.3 L (35-47) % MCV 93.4 (78-100) fl MCH 29.6 (26-32) pg MCHC 31.6 L (32-36) g/dl RDW 14.1 H (11.5-14.0) % Plt Count 255 (150-450) K/mm3 MPV 10.4 (7.5-11.0) fl Segmented Neutrophils 72 H (36.0-66.0) % Lymphocytes (Manual) 23 L (24-44) % Monocytes (Manual) 5 (0.0-12.0) % Hypochromia 1+ Platelet Estimate NORMAL (NORMAL) RBC Morphology ABNORMAL Anisocytosis 1+ Microcytosis 1+ Micro Results-Entire Visit: Microbiology 06/03/21 09:53 Urine Culture - Preliminary Catherized NO GROWTH TO DATE Final Diagnosis/Problem List - Final Discharge Diagnosis/Problem (1) Vaginal delivery Current Visit: Yes Status: Acute Code(s): O80 - ENCOUNTER FOR FULL-TERM UNCOMPLICATED DELIVERY - Discharge Disposition: Home, Self-Care Condition: Stable Prescriptions: New Ibuprofen [Ibu] 600 mg PO Q6H PRN PRN 30 Days #46 tablet PRN Reason: Pain Follow up with: BEATRICE ROLDAN [Primary Care Provider] - SUZIE FELIX DO [ACTIVE STAFF] - 3 weeks (NOTHING PER VAGINA FOR 4 WKS)
[2021-06-04] MEDS: TYLENOL EXTRA STRENGTH 500 MG PO PRN (20:10)
[2021-06-05] MEDS: TYLENOL EXTRA STRENGTH 500 MG PO PRN (04:37)
[2021-06-05] MEDS: MOTRIN 400 MG PO PRN ×2 (05:48→12:09)
[2021-06-05] MEDS ORDERED: FERREX 150 PO SCH (10:00)
[2021-06-05] MEDS: Colace 100 MG PO SCH (10:30)
[2021-06-05 19:18] VITALS: BP 131/69; PULSE 86; O2SAT 97
== END 2021-06-05 18:52 | disposition home or self-care (01) | DRG 807 ==
LOC: OB 07:32 → OBSVTOIN 06-03 07:32
PROVIDERS: ADMIT Obstetrics & Gynecology; ATTEND Obstetrics & Gynecology
PROC: 10E0XZZ Delivery of Products of Conception, External Approach (ICD-10-PCS; principal; 2021-06-03)
DX: O80 Encounter for full-term uncomplicated delivery (principal); Z37.0 Single live birth; Z3A.39 39 weeks gestation of pregnancy
CPT/HCPCS: 36415; 59409; 80307; 85025; 86850; 86900; 86901; 87086; G0378; J2590; J2795; J3010; A9270-GY

== ENCOUNTER 2021-08-27 07:52 | Emergency (ER) | payer OTHER ==
[2021-08-27 08:26] VITALS: BP 129/77; PULSE 88; O2SAT 98
[2021-08-27] MEDS ORDERED: Cleocin Phosphate IV 600 MG/4 ML IM STA (08:33)
[2021-08-27] MEDS ORDERED: Cleocin Phosphate IV 600 MG/4 ML ONE (08:38)
[2021-08-27] MEDS ORDERED: MORPHINE SULFATE 4 MG INJ IM ONE (08:43)
--- NOTE | 2021-08-27 08:44 | ERPHSYRPT ---
- History of Present Illness Time Seen by Provider: 08/27/21 07:55 Source: patient Exam Limitations: no limitations Patient Subjective Stated Complaint: "i have an bascess." Triage Nursing Assessment: The patient reported a two day onset of an abscess on the right breast. She reported that she currently has a two month old at home and is not breast feeding due to poor mild production. She denied any history of abscesses. Reported that the pain began today. Denied any exudate at this time. Large softball size area of erythema to the medial aspect of the right breast. No noted drainage at this time. Physician History: 26 years old female 2 months presented in the ER with chief complaint of right breast medial aspect swelling which started as a small pimple 2 days ago and gradually worsening pain moderate to severe sharp throbbing with redness around. She tried to squeeze it with no discharge. No nipple discharge. No fever or chills reported. Timing/Duration: day(s) (2), constant, gradual onset, worse Quality: painful Severity: moderate Location: torso Possible Causes: no cause identified Associated Symptoms: change in skin texture, rash, swelling/mass/lumps Allergies/Adverse Reactions: No Known Drug Allergies Allergy (Verified 08/27/21 08:13) Hx Tetanus, Diphtheria Vaccination/Date Given: Yes Hx Influenza Vaccination/Date Given: Yes Hx Pneumococcal Vaccination/Date Given: No Travel Risk - International Travel Have you traveled outside of the country in past 3 weeks: No - Coronavirus Screening Are you exhibiting any of the following symptoms?: No Close contact with a COVID-19 positive Pt in past 14-21 Days: No - Vaccine Status Have you recieved a Covid-19 vaccination: No - Review of Systems Constitutional: No Symptoms Ears, Nose, & Throat: No Symptoms Respiratory: No Symptoms Cardiac: No Symptoms Abdominal/Gastrointestinal: No Symptoms Genitourinary Symptoms: No Symptoms Musculoskeletal: No Symptoms Skin: Cellulitis, Skin Lesions Neurological: No Symptoms Psychological: No Symptoms Endocrine: No Symptoms Hematologic/Lymphatic: No Symptoms Immunological/Allergic: No Symptoms - Past Medical History Pertinent Past Medical History: Yes Neurological History: No Pertinent History ENT History: No Pertinent History Cardiac History: No Pertinent History Respiratory History: No Pertinent History Endocrine Medical History: No Pertinent History Musculoskeletal History: No Pertinent History, Other GI Medical History: No Pertinent History History: No Pertinent History Psycho-Social History: Anxiety, Attention Deficit Disorder, Depression Female Reproductive Disorders: No Pertinent History Other Medical History: BROKEN LEFT LEG. ANGER ISSUES. SELF, ALCOHOL EFFECTS AT - Past Surgical History Past Surgical History: Yes Neuro Surgical History: No Pertinent History Cardiac: No Pertinent History Respiratory: No Pertinent History Gastrointestinal: No Pertinent History Genitourinary: No Pertinent History Musculoskeletal: Orthopedic Surgery Female Surgical History: No Pertinent History Other Surgical History: LEFT LEG BROKE, REPAIRED - Social History Smoking Status: Current every day smoker How long have you smoked: 10 Exposure to second hand smoke: Yes Drug Use: none Patient Lives Alone: No - Female History Hx Now: No - Nursing Vital Signs Nursing Vital Signs: Initial Vital Signs Temperature 98 F 08/27/21 07:53 Pulse Rate 88 08/27/21 07:53 Respiratory Rate 18 08/27/21 07:53 Blood Pressure 129/77 08/27/21 07:53 O2 Sat by Pulse Oximetry 98 08/27/21 07:53 Pain Scale Pain Intensity 4 - Physical Exam General Appearance: no apparent distress, alert Ears, Nose, Throat Exam: normal ENT inspection, TMs normal Neck Exam: normal inspection, non-tender, supple, full range of motion Respiratory Exam: normal breath sounds, lungs clear, other (Right paramedial aspect 2 x 2 cm area of swelling/induration, fluctuant with erythema around almost 6 cm. No axillary lymph nodes enlargement. No puckering of skin. No nipple changes.) Cardiovascular Exam: regular rate/rhythm, normal heart sounds Back Exam: normal inspection, normal range of motion Extremity Exam: normal inspection, normal range of motion Neurologic Exam: alert, oriented x 3, cooperative Skin Exam: normal color SpO2 Interpretation: normal SpO2: 98 O2 Delivery: Room Air Procedures - Incision and Drainage Time of Procedure: 09:00 Site: right breast Anesthesia: 1% Lidocaine cc's of anesthesia: 4 Blade Size: other I & D Procedure: hibiclens prep, sterile drapes applied, culture obtained Results: small amount pus Ordered Tests: Active Orders 24 hr Category Date Time Status CULTURE,ABSCESS Stat Lab 08/27/21 09:15 Ordered Medication Summary Discontinued Medications Generic Name Dose Route Start Last Admin Trade Name Freq PRN Reason Stop Dose Admin Clindamycin Phosphate 600 mg 08/27/21 08:33 08/27/21 08:47 Clindamycin Phosphate 600 Mg/4 Ml Vial IM 08/27/21 08:34 600 mg ONCE STA Administration Clindamycin Phosphate Confirm 08/27/21 08:38 Clindamycin Phosphate 600 Mg/4 Ml Vial Administered 08/27/21 08:39 Dose 600 mg .ROUTE .STK-MED ONE Morphine Sulfate 4 mg 08/27/21 08:43 08/27/21 08:51 Morphine Sulfate 4 Mg/Ml Injection IM 08/27/21 08:44 Not Given STAT ONE - Progress Progress: unchanged Progress Note: 08/27/21 08:43 She is given symptomatic treatment for pain, needle aspiration done with 2 cc pus drained, sent for culture. Area is marked. Started on clindamycin. Outpatient primary care/general surgery follow-up. Recommended warm compresses. Pain medications. Discussed signs symptoms of worsening needing return to ER which she seems understanding. Stable for discharge. Counseled pt/family regarding: diagnosis, need for follow-up - Departure Departure Disposition: Home Clinical Impression: Abscess of right breast Condition: Stable Critical Care Time: No Referrals: BEATRICE ROLDAN [Primary Care Provider] - Follow up/PCP as directed (In 2 days for reevaluation) DEBI GONZALEZ [ACTIVE STAFF] - Follow up/PCP as directed (Call for appointment in the next couple of days) Instructions: MRSA (DC), Mastitis (DC) Additional Instructions: Take pain medications as needed. Apply warm compresses. Follow-up with primary care and general surgery for reevaluation. Return to ER for increasing swelling pain, discharge, fever chills etc. Prescriptions: Hydrocodone/Acetaminophen [Hydrocodone-Acetamin 7.5-325] 1 each PO Q6HPRN PRN 3 Days #12 tablet MDD 4 PRN Reason: Pain clindamycin HCL [Clindamycin HCl] 300 mg PO QID 7 Days #28 cap
== END 2021-08-27 09:15 | disposition home or self-care (01) ==
LOC: ED 07:52
DX: O91.12 Abscess of breast associated with the puerperium (principal); Z72.0 Tobacco use; Z79.891 Long term (current) use of opiate analgesic
CPT/HCPCS: 10060; 87070; 96372; 99283

== ENCOUNTER 2023-03-24 09:39 | Day surgery (SDC) | payer OTHER ==
--- NOTE | 2023-03-16 13:55 | HP ---
DATE OF SURGERY: 03/24/2023 HISTORY OF PRESENT ILLNESS: The patient is a 27-year-old female presents with umbilical hernia on physical exam. She has some pain with it. She would like it fixed. PAST MEDICAL HISTORY: None. PAST SURGICAL HISTORY: None. ALLERGIES: NKDA. MEDICATIONS: None. FAMILY HISTORY: None. SOCIAL HISTORY: Current every day smoker. REVIEW OF SYSTEMS: CONSTITUTIONAL: Denies fever or chills. CHEST: Denies shortness of breath. CVS: Denies chest pain. ABDOMEN: Denies abdominal pain other than umbilical hernia pain. PHYSICAL EXAMINATION: GENERAL: No acute distress. CHEST: Nonlabored. No shortness of breath. CVS: Regular rate and rhythm. ABDOMEN: Moderate umbilical hernia. IMPRESSION: Moderate umbilical hernia. PLAN: Umbilical hernia repair with possible mesh with Dr. Trung Valderrama. As dictated by Katie Gupta NP.
[~2023-03-24 09:39] MED LIST: Lactated Ringers 1,000 ML IV ONE; Sensorcaine 0.25% 10 ML ONE
[2023-03-24 09:54] LABS: HCG URINE TEST NEGATIVE (NEGATIVE)
[2023-03-24] MEDS ORDERED: KEFZOL 1 GM** 3 G in Sodium Chloride 0.9% 50 ML 50 ML IV SCH (10:00)
[2023-03-24] MEDS ORDERED: Lactated Ringers 1,000 ML IV SCH (10:00)
[2023-03-24 10:06] VITALS: RESP 16
[2023-03-24] MEDS ORDERED: Lactated Ringers 1,000 ML IV ONE (10:12)
[2023-03-24] MEDS ORDERED: Zofran 4 MG/2 ML VIAL ONE (12:12)
[2023-03-24] MEDS ORDERED: DIPRIVAN 200 MG/20 ML IV ONE (12:12)
[2023-03-24] MEDS ORDERED: Xylocaine-Mpf 2% 5 Ml Vial ONE (12:12)
[2023-03-24] MEDS ORDERED: Zemuron 100 MG/10 ML ONE (12:12)
[2023-03-24] MEDS ORDERED: Decadron 4 MG INJ ONE (12:12)
[2023-03-24] MEDS ORDERED: SUBLIMAZE 100 MCG/2 ML ONE (12:12)
[2023-03-24] MEDS ORDERED: BRIDION 200MG/2ML IV ONE (12:12)
[2023-03-24] MEDS ORDERED: Versed 2 MG/2 ML Injection ONE (12:12)
[2023-03-24] MEDS ORDERED: TORAdol 30 mg Injection ONE (12:46)
[2023-03-24] MEDS ORDERED: Marcaine 0.5%/Epinephrine 10 ML ONE ×2 (12:51→12:52)
[2023-03-24 13:52] VITALS: TEMP 97.7
[2023-03-24 14:08] VITALS: O2SAT 96
[2023-03-24 14:26] VITALS: BP 137/79; PULSE 87
--- NOTE | 2023-03-28 10:50 | OP ---
SURGERY DATE/TIME: 03/24/2023 1217 PREOPERATIVE DIAGNOSIS: Umbilical hernia symptomatic. POSTOPERATIVE DIAGNOSIS: Umbilical hernia symptomatic. PROCEDURE: Open umbilical hernia repair with primary repair. No mesh. SURGEON: Trung Valderrama M.D. ANESTHESIA: General. COMPLICATIONS: None. CONDITION: Stable. INDICATION: The patient has umbilical hernia marked preoperatively. DESCRIPTION OF PROCEDURE: Taken to surgery. General anesthetic. Routine prep and drape. Supraumbilical incision. Dissected off the fascia. The sac was about 1.25 x 1.0 inch but the defect was only 1.5 cm wide and 1 cm tall. The hernia was reduced and then the defect approximated with running suture of #0. Satisfactory repair. No tension was present. Umbilicus re-approximated with 4-0 Vicryl, compressive medical dressing. The patient tolerated the procedure satisfactorily.
== END 2023-03-24 14:20 | disposition home or self-care (01) ==
LOC: SDC 09:39
PROVIDERS: ATTEND Surgery
DX: K42.9 Umbilical hernia without obstruction or gangrene (principal)
CPT/HCPCS: 64488; 76937; 81025; J0690; J1100; J1885; J2250; J2405; J2704; J3010; L0625

== ENCOUNTER 2023-04-12 08:57 | Emergency (ER) | payer OTHER ==
[2023-04-12 09:26] VITALS: TEMP 98.8
[2023-04-12] MEDS ORDERED: Sodium Chloride 0.9% 1000 ML 1,000 ML IV SCH (09:30)
--- NOTE | 2023-04-12 09:32 | ERPHSYRPT ---
- History of Present Illness Time Seen by Provider: 04/12/23 09:20 Historian: patient Exam Limitations: no limitations Patient Subjective Stated Complaint: Pt reports she had umbilical hernia surgery approx 2 weeks ago; unsure of exact date; surgeon was Dr Valderrama which pt thinks it was Dr Nino. This morning when she stood up drainage came out of umbilicus and continued to drain. Pt called ambulance, dining service supervisor covered with gauze and pt elected to come to ED via private vehicle. States she was just released to go back to work, Dr Luda Valderrama is who she saw for follow up and is supposed to see her again in two weeks due to Dr Kelly Valderrama thinking there may be a pocket of fluid behind umbilicus that may need to be "popped'. Triage Nursing Assessment: Pt alert and oriented x3. No apparent respiratory distress. Ambulated to ED cot without difficulty. Skin w/p/d. Accompanied by family friend. Afebrile. Umbilicus protruding outward, purple tint in color, yellow thin drainage noted, moderate amount of drainage. Pt denies any pain. Physician History: Patient is a 28-year-old white female who 2 weeks ago had an umbilical hernia repair done by Dr. Valderrama. This morning she stood up and there was a copious amount of serous fluid draining from around the central portion of the umbilicus. It does not look purulent it does not look particularly bloody it is mostly just yellow-tinged fluid.She does not seem to be in any particular pain has had no nausea or vomiting fever chills sweats etc. Timing/Duration: week(s) (2) Activities at Onset: none Modifying Factors: Improves With: movement (Movement and standing) Allergies/Adverse Reactions: No Known Drug Allergies Allergy (Verified 04/12/23 09:13) Hx Tetanus, Diphtheria Vaccination/Date Given: Yes Hx Influenza Vaccination/Date Given: No Hx Pneumococcal Vaccination/Date Given: No Travel Risk - International Travel Have you traveled outside of the country in past 3 weeks: No - Coronavirus Screening Are you exhibiting any of the following symptoms?: No Close contact with a COVID-19 positive Pt in past 14-21 Days: No - Vaccine Status Have you recieved a Covid-19 vaccination: Yes Remote Computer Terminal Operator: Unknown - Vaccination Dates Dates if Unknown: ? - Review of Systems Constitutional: No Fever, No Chills Eyes: No Symptoms Ears, Nose, & Throat: No Symptoms Respiratory: No Cough, No Dyspnea Cardiac: No Chest Pain, No Edema, No Syncope Abdominal/Gastrointestinal: Other, No Abdominal Pain, No Nausea, No Vomiting, No Diarrhea Genitourinary Symptoms: No Dysuria Musculoskeletal: No Back Pain, No Neck Pain Skin: No Rash Neurological: No Dizziness, No Focal Weakness, No Sensory Changes Psychological: No Symptoms Endocrine: No Symptoms All Other Systems: Reviewed and Negative - Past Medical History Pertinent Past Medical History: Yes Neurological History: No Pertinent History ENT History: No Pertinent History Cardiac History: No Pertinent History Respiratory History: No Pertinent History Endocrine Medical History: No Pertinent History Musculoskeletal History: No Pertinent History, Other GI Medical History: Hernia History: No Pertinent History Psycho-Social History: Anxiety, Depression Female Reproductive Disorders: No Pertinent History Other Medical History: BROKEN LEFT LEG. ANGER ISSUES. SELF, ALCOHOL EFFECTS AT . ADHD. vaginal births x2 - Past Surgical History Past Surgical History: Yes Neuro Surgical History: No Pertinent History Cardiac: No Pertinent History Respiratory: No Pertinent History Gastrointestinal: Hernia Repair Genitourinary: No Pertinent History Musculoskeletal: Orthopedic Surgery Female Surgical History: No Pertinent History Other Surgical History: LEFT LEG BROKE, REPAIRED. hardware removal of left leg. umbilical hernia 04/12/23 - Social History Smoking Status: Current every day smoker How long have you smoked: 10 Exposure to second hand smoke: Yes Drug Use: none Patient Lives Alone: No - Female History Hx Last Menstrual Period: 04/11/23 Hx Now: No - Nursing Vital Signs Nursing Vital Signs: Initial Vital Signs Temperature 98.8 F 04/12/23 09:04 Pulse Rate 88 04/12/23 09:04 Respiratory Rate 18 04/12/23 09:04 Blood Pressure 125/76 04/12/23 09:04 O2 Sat by Pulse Oximetry 95 04/12/23 09:04 Pain Scale Pain Intensity 0 - Physical Exam General Appearance: no apparent distress, alert Eye Exam: PERRL/EOMI, eyes nml inspection Ears, Nose, Throat Exam: normal ENT inspection, pharynx normal, moist mucous membranes Neck Exam: normal inspection, non-tender, supple, full range of motion Respiratory Exam: normal breath sounds, lungs clear, No respiratory distress Cardiovascular Exam: regular rate/rhythm, normal heart sounds Gastrointestinal/Abdomen Exam: soft, other (Pressure around the umbilicus causes expression of the serous fluid at the site of the umbilical hernia.), No tenderness, No mass Pelvic Exam: not done Rectal Exam: deferred Back Exam: normal inspection, normal range of motion, No CVA tenderness, No vertebral tenderness Extremity Exam: normal inspection, normal range of motion, pelvis stable Neurologic Exam: alert, oriented x 3, cooperative, normal mood/affect, nml cerebellar function, sensation nml, No motor deficits Skin Exam: normal color, warm, dry SpO2 Interpretation: normal SpO2: 95 O2 Delivery: Room Air - CT Exams Abdomen/Pelvis CT Interpretation: Other (I reviewed the CT report from Dr. Deleon.) Ordered Tests: Active Orders 24 hr Category Date Time Status IV Insertion STAT Care 04/12/23 09:16 Active ABDOMEN AND PELVIS W CONTRAST [CT] Stat Exams 04/12/23 09:19 Completed CBC W DIFF Stat Lab 04/12/23 09:38 Completed CMP Stat Lab 04/12/23 09:38 Completed CULTURE,URINE Stat Lab 04/12/23 09:56 Received CULTURE,WOUND Stat Lab 04/12/23 09:39 Received Lactic Acid Stat Lab 04/12/23 09:35 Completed UA W/RFX UR CULTURE Stat Lab 04/12/23 09:56 Completed Medication Summary Generic Name Dose Route Start Last Admin Trade Name Oswaldoq PRN Reason Stop Dose Admin Sodium Chloride 1,000 mls @ 100 mls/hr 04/12/23 09:30 04/12/23 10:21 Sodium Chloride 0.9% 1000 Ml IV 05/12/23 09:29 100 mls/hr .Q10H MASOOD Administration Ceftriaxone Sodium/Dextrose 1 g in 50 mls @ 100 mls/hr 04/12/23 11:20 Rocephin 1 Gm-D5w 50 Ml Bag IV 04/12/23 11:49 STAT STA Lab/Rad Data: Laboratory Result Diagrams 04/12/23 09:38 04/12/23 09:38 Laboratory Results 04/12/23 04/12/23 04/12/23 Range/Units 09:56 09:38 09:38 WBC 9.7 (4.0-10.5) x10^3/uL RBC 4.49 (4.1-5.4) x10^6/uL Hgb 13.3 (12.0-16.0) g/dL Hct 40.1 (35-47) % MCV 89.3 (78-100) fL MCH 29.6 (26-32) pg MCHC 33.2 (32-36) g/dL RDW 13.5 (11.5-14.0) % Plt Count 279 (150-450) x10^3/uL MPV 10.3 (7.5-11.0) fL Gran % 62.3 (36.0-66.0) % Immature Gran % (Auto) 0.3 (0.00-0.4) % Nucleat RBC Rel Count 0.0 (0.00-0.1) % Eos # (Auto) 0.23 (0-0.5) x10^3/uL Immature Gran # (Auto) 0.03 (0.00-0.03) x10^3u/L Absolute Lymphs (auto) 2.63 (1.0-4.6) x10^3/uL Absolute Monos (auto) 0.69 (0.0-1.3) x10^3/uL Absolute Nucleated RBC 0.00 (0.00-0.01) x10^3u/L Lymphocytes % 27.3 (24.0-44.0) % Monocytes % 7.2 (0.0-12.0) % Eosinophils % 2.4 (0.00-5.0) % Basophils % 0.5 (0.0-0.4) % Absolute Granulocytes 6.02 (1.4-6.9) x10^3/uL Basophils # 0.05 (0-0.4) x10^3/uL Sodium 139 (137-145) mmol/L Potassium 3.7 (3.5-5.1) mmol/L Chloride 107 (98-107) mmol/L Carbon Dioxide 22 (22-30) mmol/L Anion Gap 13.3 (5-15) MEQ/L BUN 12 (7-17) mg/dL Creatinine 0.61 (0.52-1.04) mg/dL Estimated GFR > 60.0 ML/MIN Glucose 107 H (74-106) mg/dL Lactic Acid (0.4-2.0) Calcium 8.6 (8.4-10.2) mg/dL Total Bilirubin 0.70 (0.2-1.3) mg/dL AST 26 (14-36) U/L ALT 28 (0-35) U/L Alkaline Phosphatase 100 (38-126) U/L Serum Total Protein 6.8 (6.3-8.2) g/dL Albumin 3.9 (3.5-5.0) g/dL Urine Color Dark Yellow A (Yellow) Urine Appearance Cloudy A (Clear) Urine pH 6.0 (4.6-8.0) Ur Specific [place] >=1.030 A (1.005-1.030) Urine Protein 30 (Negative) Urine Glucose (UA) Negative (Negative) mg/dL Urine Ketones Trace A (Negative) Urine Blood Large A (Negative) Urine Nitrite Negative (Negative) Urine Bilirubin Negative (Negative) Urine Urobilinogen 1.0 A (0.2) mg/dL Ur Leukocyte Esterase Trace A (Negative) U Hyaline Cast (Auto) NONE SEEN (0-2) /LPF Urine Microscopic RBC >100 A (0-5) /HPF Urine Microscopic WBC 3-5 (0-5) /HPF Ur Epithelial Cells Few (None Seen) /HPF Urine Bacteria Rare A (None Seen) /HPF Urine Culture Reflexed YES (NO) 04/12/23 Range/Units 09:35 WBC (4.0-10.5) x10^3/uL RBC (4.1-5.4) x10^6/uL Hgb (12.0-16.0) g/dL Hct (35-47) % MCV (78-100) fL MCH (26-32) pg MCHC (32-36) g/dL RDW (11.5-14.0) % Plt Count (150-450) x10^3/uL MPV (7.5-11.0) fL Gran % (36.0-66.0) % Immature Gran % (Auto) (0.00-0.4) % Nucleat RBC Rel Count (0.00-0.1) % Eos # (Auto) (0-0.5) x10^3/uL Immature Gran # (Auto) (0.00-0.03) x10^3u/L Absolute Lymphs (auto) (1.0-4.6) x10^3/uL Absolute Monos (auto) (0.0-1.3) x10^3/uL Absolute Nucleated RBC (0.00-0.01) x10^3u/L Lymphocytes % (24.0-44.0) % Monocytes % (0.0-12.0) % Eosinophils % (0.00-5.0) % Basophils % (0.0-0.4) % Absolute Granulocytes (1.4-6.9) x10^3/uL Basophils # (0-0.4) x10^3/uL Sodium (137-145) mmol/L Potassium (3.5-5.1) mmol/L Chloride (98-107) mmol/L Carbon Dioxide (22-30) mmol/L Anion Gap (5-15) MEQ/L BUN (7-17) mg/dL Creatinine (0.52-1.04) mg/dL Estimated GFR ML/MIN Glucose (74-106) mg/dL Lactic Acid 1.4 (0.4-2.0) Calcium (8.4-10.2) mg/dL Total Bilirubin (0.2-1.3) mg/dL AST (14-36) U/L ALT (0-35) U/L Alkaline Phosphatase (38-126) U/L Serum Total Protein (6.3-8.2) g/dL Albumin (3.5-5.0) g/dL Urine Color (Yellow) Urine Appearance (Clear) Urine pH (4.6-8.0) Ur Specific [place] (1.005-1.030) Urine Protein (Negative) Urine Glucose (UA) (Negative) mg/dL Urine Ketones (Negative) Urine Blood (Negative) Urine Nitrite (Negative) Urine Bilirubin (Negative) Urine Urobilinogen (0.2) mg/dL Ur Leukocyte Esterase (Negative) U Hyaline Cast (Auto) (0-2) /LPF Urine Microscopic RBC (0-5) /HPF Urine Microscopic WBC (0-5) /HPF Ur Epithelial Cells (None Seen) /HPF Urine Bacteria (None Seen) /HPF Urine Culture Reflexed (NO) - Progress Progress: improved Progress Note: 04/12/23 11:25 I discussed the report with Dr. Valderrama we will allow it to continue spontaneously draining he will follow her up in the office between 9 and 12 tomorrow at his [place] office Discussed with : Michelle Medical Desision Making - Independent Historian Additional History obtained from: Family - Discussion of managment Care discussed with:: specialist (Dr. Trung Valderrama) Reviewed:: Test results Agreed on:: Treatment plan, need for follow-up - Diagnostic Testing Diagnostic test were ordered, analyzed, and reviewed by me: Yes Radiological Interpretation: Reviewed by me - Risk of complications The pt has a mod risk of morbidity or mortality based on: Need for minor surgical intervention in patient with know risk factors - Departure Departure Disposition: Home Clinical Impression: Seroma after procedure Condition: Stable Critical Care Time: No Referrals: BEATRICE ROLDAN [Primary Care Provider] - Follow up/PCP as directed Instructions: Wound Care (DC) Additional Instructions: Patient was instructed to go to Dr. Valderrama's office between 9 and noon tomorrow for follow-up. Prescriptions: Cephalexin Mh 500 mg [Keflex 500 mg] 500 mg PO Q6H 10 Days #40 cap
[2023-04-12 09:40] LABS: Absolute Neutrophil Ct (ANC) 6.02 x10^3/uL (1.4-6.9); BASOPHIL % 0.5 % (0.0-0.4); Basophil (Absolute #) 0.05 x10^3/uL (0-0.4); Eosinophil % 2.4 % (0.00-5.0); Eosinophil (Absolute #) 0.23 x10^3/uL (0-0.5); Hematocrit 40.1 % (35-47); Hemoglobin 13.3 g/dL (12.0-16.0); IMMATURE GRAN # 0.03 x10^3u/L (0.00-0.03); IMMATURE GRAN % 0.3 % (0.00-0.4); Lymphocyte (Absolute #) 2.63 x10^3/uL (1.0-4.6); Lymphocytes % 27.3 % (24.0-44.0); Mean Cell Volume 89.3 fL (78-100); Mean Corpuscular Hemoglobin 29.6 pg (26-32); Mean Corpuscular Hgb Concent. 33.2 g/dL (32-36); Mean Platelet Volume 10.3 fL (7.5-11.0); Monocyte (Absolute #) 0.69 x10^3/uL (0.0-1.3); Monocytes % 7.2 % (0.0-12.0); Neutrophil % 62.3 % (36.0-66.0); Platelet Count 279 x10^3/uL (150-450); Red Blood Count 4.49 x10^6/uL (4.1-5.4); Red Cell Distribution Width 13.5 % (11.5-14.0); White Blood Count 9.7 x10^3/uL (4.0-10.5)
[2023-04-12 09:55] LABS: ALBUMIN 3.9 g/dL (3.5-5.0); ALKALINE PHOSPHATASE 100 U/L (38-126); ANION GAP 13.3 MEQ/L (5-15); BLOOD UREA NITROGEN 12 mg/dL (7-17); CHLORIDE 107 mmol/L (98-107); Calcium 8.6 mg/dL (8.4-10.2); Carbon Dioxide 22 mmol/L (22-30); Creatinine 1 0.61 mg/dL (0.52-1.04); EST GLOMERULAR FILTRATION RATE > 60.0 ML/MIN; Glucose 107 mg/dL (74-106); Potassium 3.7 mmol/L (3.5-5.1); SGOT/AST 26 U/L (14-36); SGPT/ALT 28 U/L (0-35); SODIUM 139 mmol/L (137-145); Total Protein 6.8 g/dL (6.3-8.2)
[2023-04-12 10:07] VITALS: PULSE 81
[2023-04-12] MEDS ORDERED: Sodium Chloride 0.9% 1000 ML 1,000 ML ONE (10:19)
--- NOTE | 2023-04-12 10:34 | XRAY ---
Indication: Pain. Umbilical seroma. Multiple contiguous axial images obtained through the abdomen and pelvis using 80 cc Isovue 370 contrast. Comparison: None Lung bases clear. Heart not enlarged. Umbilicus demonstrates fluid collection measuring at least 4.2 x 3.5 x 4.0 cm with surrounding induration favoring inflammatory/infectious process. No intra-abdominal communication but minimal underlying omental fatty stranding. No other ventral or inguinal hernias. Noncontrasted stomach and bowel loops appear nonobstructed with normal appendix. 4.2 cm right ovary cyst. Punctate gallstone. No free fluid/air. Remaining liver, gallbladder, pancreas, spleen, adrenal glands, kidneys, ureters, bladder, uterus, and aorta are unremarkable. No pathologic retroperitoneal lymphadenopathy. Osseous structures intact with incidental L4 limbus vertebrae. Impression: 1. Infected/inflammatory umbilicus fluid collection as detailed. 2. Incidental right ovary cyst and punctate gallstone.
[2023-04-12 10:35] LABS: ADD URINE CULTURE? YES (NO); Appearance Cloudy (Clear); Bacteria Rare /HPF (None Seen); Bilirubin Negative (Negative); Blood Large (Negative); Epithelial Cells Few /HPF (None Seen); Glucose, Urine Negative (Negative); Hyaline Casts NONE SEEN /LPF (0-2); Ketones Trace (Negative); Leukocyte Esterase Trace (Negative); Nitrite Negative (Negative); Protein,Urine Dip 30 (Negative); RBC >100 /HPF (0-5); Specific Gravity >=1.030 (1.005-1.030)
[2023-04-12] MEDS ORDERED: ROCEPHIN 1 Gm-D5w 50 ml Bag** 1 G/50 ML IVPB IV STA (11:20)
[2023-04-12] MEDS ORDERED: ROCEPHIN 1 Gm-D5w 50 ml Bag** 1 G/50 ML IVPB IV ONE (11:22)
[2023-04-12 15:58] VITALS: O2SAT 97
[2023-04-12 15:59] VITALS: BP 119/74; RESP 16
== END 2023-04-12 11:46 | disposition home or self-care (01) ==
LOC: ED 08:57
DX: L76.34 Postprocedural seroma of skin and subcutaneous tissue following other procedure (principal); Z72.0 Tobacco use
CPT/HCPCS: 36000; 36415; 74177; 80053; 81001; 83605; 85025; 87070; 87077; 87086; 87186; 96365; 99284; J0696